=== PATIENT | female | born 2000 | race Caucasian/White ===

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

== ENCOUNTER 2020-03-06 23:10 | Emergency (ER) | payer MEDICAID ==
[~2020-03-06] VITALS: Ht 167.6 cm; Wt 77.1 kg
[2020-03-06 23:30] VITALS: BP_SYST 128
--- NOTE | 2020-03-07 | NUR ---
Patient came to ER. C/O vaginal bleeding x today. Patient had vaginal bleeding since 2100 PM. LMP 11/16/2019. [id number] per ultrasound ~14 weeks pregnent. A/O,X4, cramping pain, pain rate 2/10, vss.
--- NOTE | 2020-03-07 00:02 | NUR ---
BRAYDEN Bob at [facility] examining patient.
--- NOTE | 2020-03-07 01:06 | NUR ---
Patient transported to Ultrasoundroom via wheelchair, accompanied by [employer].
--- NOTE | 2020-03-07 01:36 | NUR ---
Blood for labwork drawn from [employer]. Patient tolerated well.
[2020-03-07 02:29] LABS: BASOPHILS % (AUTO) 0.3 % (0.0-2.0); EOSINOPHILS # (AUTO) 0.1 K/uL (0.0-0.4); EOSINOPHILS % (AUTO) 1.4 % (0.0-4.0); HEMATOCRIT 36.3 % (36-48); LYMPHOCYTES # (AUTO) 1.8 K/uL (1.0-5.5); MEAN CORPUSCULAR HEMOGLOBIN 27 pg (27-31); MEAN CORPUSCULAR HGB CONC 33 % (32-36); MEAN CORPUSCULAR VOLUME 81 fL (79.0-98.0); MONOCYTES # (AUTO) 0.7 K/uL (0.0-1.0); MONOCYTES % (AUTO) 7.4 % (1.7-9.3); NEUTROPHILS # (AUTO) 6.9 K/uL (1.8-7.7); NEUTROPHILS % (AUTO) 71.9 % (40.0-70.0); PLATELET COUNT (AUTO) 233 K/uL (130-430); RED CELL DISTRIBUTION WIDTH 20.6 % (9.0-15.0); WHITE BLOOD COUNT (AUTO) 9.6 K/uL (4.5-11.0)
--- NOTE | 2020-03-07 02:48 | NUR ---
Patient given written and verbal discharge instructions and verbalizes understanding. ER MD discussed with patient the results and treatment provided. Patient in stable condition. ID arm band removed. No Rx given. Patient educated on pain management and to follow up with PMD. Pain Scale 0/10. Opportunity for questions provided and answered.
[2020-03-07 02:49] VITALS: BP_SYST 128
== END 2020-03-07 02:49 | disposition home or self-care (01) ==
LOC: SED 23:10
DX: O20.9 Hemorrhage in early pregnancy, unspecified (principal); Z3A.01 Less than 8 weeks gestation of pregnancy
CPT/HCPCS: 36415; 76801; 76817; 84703; 85025; 99284

== ENCOUNTER 2021-02-12 17:32 | Emergency (ER) | payer MEDICAID ==
[~2021-02-12] VITALS: Ht 167.6 cm; Wt 86.2 kg
[2021-02-12 17:37] VITALS: BP_SYST 117
[2021-02-12] MEDS ORDERED: IBUP-1971 PO (18:31)
[2021-02-12 19:29] VITALS: BP_SYST 118
== END 2021-02-12 19:29 | disposition home or self-care (01) ==
LOC: SED 17:32
DX: S91.202A Unspecified open wound of left great toe with damage to nail, initial encounter (principal); Z79.899 Other long term (current) drug therapy; Y04.0XXA Assault by unarmed brawl or fight, initial encounter; Y93.89 Activity, other specified; Y92.89 Other specified places as the place of occurrence of the external cause; Y99.8 Other external cause status
CPT/HCPCS: 99282

== ENCOUNTER 2022-01-23 16:47 | Emergency (ER) | payer MEDICAID ==
[~2022-01-23] VITALS: Ht 167.6 cm; Wt 86.2 kg
[~2022-01-23 16:47] MED LIST changes: +IBUP-1971 PO
[2022-01-23 17:02] VITALS: BP_SYST 117
[2022-01-23] MEDS ORDERED: NAPR-690 PO (22:14)
[2022-01-23 22:32] VITALS: BP_SYST 128
== END 2022-01-23 22:28 | disposition home or self-care (01) ==
LOC: SED 16:47
DX: S13.4XXA Sprain of ligaments of cervical spine, initial encounter (principal); Z79.899 Other long term (current) drug therapy; V89.2XXA Person injured in unspecified motor-vehicle accident, traffic, initial encounter; Y93.89 Activity, other specified; Y92.89 Other specified places as the place of occurrence of the external cause; Y99.8 Other external cause status
CPT/HCPCS: 72040-TC; 81025; 99283